=== PATIENT | male | born 1980 | race Caucasian/White ===

== ENCOUNTER 2017-12-03 12:10 | Emergency (ER) | payer OTHER ==
[2017-12-03] MEDS ORDERED: Ketorolac Tromethamine 60 MG/2 ML VIAL ONE (12:48)
[2017-12-03] MEDS ORDERED: HYDROcodone/Acetaminophen 10/325 mg Tablet ONE (13:29)
--- NOTE | 2017-12-03 13:29 | RAD ---
THREE VIEWS LUMBOSACRAL SPINE: Comparison: None. History: Low back pain. FINDINGS: Three views of the lumbosacral spine shows normal height and alignment of vertebral bodies and interv ertebral discs without fracture or subluxation. No significant degenerative changes are seen. IMPRESSION: Unremarkable exam. POS: [facility]
--- NOTE | 2017-12-03 14:23 | ULT ---
ULTRASOUND TESTICULAR WITH DOPPLER: HISTORY: Testicular pain. There is also a history of back pain. COMPARISON: None. FINDINGS: There is adequate vascular flow to both testicles. Echotexture is normal. The right testicle measures 4.2 x 2.2 x 2.9 cm. The left testicle measures 4.3 x 2 x 2.1 cm. Both e pididymi are normal. IMPRESSION: Normal examination of the testicles. POS: [facility]
== END 2017-12-03 13:31 | disposition home or self-care (01) ==
LOC: ERS 12:10
DX: S39.012A Strain of muscle, fascia and tendon of lower back, initial encounter (principal); X50.0XXA Overexertion from strenuous movement or load, initial encounter
CPT/HCPCS: 72100; 76870; 93976; 96372; J1885